=== PATIENT | female | born 1995 | race Two or more races ===

== ENCOUNTER 2025-02-05 20:06 | Emergency (ER) | payer SELFPAY ==
[2025-02-05 20:34] VITALS: BP 125/79; PULSE 91; RESP 16; TEMP 36.6; O2SAT 99
[2025-02-05 20:35] VITALS: BMI 28.8
--- NOTE | 2025-02-05 20:41 | XR_ITS ---
Examination: Fingers, left hand second digit 3 views Technique: AP, oblique, lateral views left hand second digit 3 views. Exam date and time: February 05, 20252050 hours INDICATIONS: Injured hand today with second digit pain FINDINGS: No acute fracture. No dislocation No foreign body IMPRESSION: No acute fracture
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
[2025-02-05] MEDS: ACETAMINOPHEN 500 MG TABLET 1000 MG PO (21:06)
== END 2025-02-05 22:39 | disposition home or self-care (01) ==
PROVIDERS: Emergency Provider Emergency Medicine
DX: O9A.212 Injury, poisoning and certain other consequences of external causes complicating pregnancy, second trimester (principal); S60.00XA Contusion of unspecified finger without damage to nail, initial encounter; W22.8XXA Striking against or struck by other objects, initial encounter; Z3A.17 17 weeks gestation of pregnancy
CPT/HCPCS: 73140; 99283; A9270